=== PATIENT | male | born 1960 | race Caucasian/White ===

== ENCOUNTER 2018-03-31 08:11 | Day surgery (SDC) | payer MEDICAID, SELFPAY ==
[2018-03-31 08:42] VITALS: BP 142/68; PULSE 74; RESP 14; TEMP 36.8; O2SAT 97; BMI 26.5
--- NOTE | 2018-03-31 09:15 | COLBX_PTH ---
PATIENT: CHANO STOVER LOC: EN U#:[id number] AGE/SX: 58/M ROOM: RE03/31/[address]: Dr. Geovanna Zhang MD : 1960 BED: DIS: 03/31/2018 SPEC #: [id number] RECD: 03/31/18 11:33 STATUS: MARGIE BENIGNO #: [id number] GUERITA: 03/31/18 09:[address]: Geovanna Zhang DEPT: SURGICAL PATHOLOGY RECD BY: Sotero Valenzuela ENTERED: 03/31/18 12:48 SP TYPE: COLON BX OTHR DR: Joshua Gayle Tissues: A - Transverse colon B - Rectum, NOS Procedures: Surgery Specimen Level IV HEADER OPERATION: Colonoscopy (MAC) PRE-OP DIAGNOSIS: Positive fecal occult test TISSUE SUBMITTED: A. Distal transverse colon polyps, B. Rectal polyp MICROSCOPIC DIAGNOSIS A. Distal transverse colon polyp, biopsy: Fragments of tubular adenoma. B. Rectal polyp, biopsy: Fragments of hyperplastic polyp. Fecal debris. AM:jyoti 04/01/18 MICROSCOPIC DESCRIPTION Slides are reviewed. GROSS DESCRIPTION A. Received is one container labeled with the patient name and designated distal transverse colon polyp. The specimen consists of multiple irregular fragments of dangelo soft tissue that in aggregate measure 1.5 x 0.4 x 0.2 cm. The specimen is totally submitted in one cassette. B. Received is one container labeled with the patient name and designated rectal polyp. The specimen consists of multiple fragments of dangelo soft tissue that in aggregate measure 2.5 x 0.5 x 0.1 cm. The specimen is totally submitted in one cassette. / SJ:jyoti 03/31/18 TC: 5 CPT:41302 x2
[2018-03-31 10:05] VITALS: BP 131/83; BP 142/68; PULSE 78; RESP 16; TEMP 36.4; O2SAT 93
--- NOTE | 2018-03-31 10:09 | OP.ENDO_ITS ---
Patient Name: Tiago Miller Procedure Date: 03/31/2018 9:11 AM Date of : 1960 Age: 58 Procedure: Colonoscopy Indications: Positive fecal immunochemical test Providers: Geovanna Zhang MD Medicines: Monitored Anesthesia Care Patient Profile: This is a 58 year old male. Last Colonoscopy: none. The patient's first colonoscopy is today. Complications: No immediate complications. Procedure: Pre-Anesthesia Assessment: - Prior to the procedure, a History and Physical was performed, and patient medications and allergies were reviewed. The patient's tolerance of previous anesthesia was also reviewed. The risks and benefits of the procedure and the sedation options and risks were discussed with the patient. All questions were answered, and informed consent was obtained. Prior Anticoagulants: The patient has taken aspirin, last dose was 5 days prior to procedure. ASA Grade Assessment: II - A patient with mild systemic disease. After reviewing the risks and benefits, the patient was deemed in satisfactory condition to undergo the procedure. After I obtained informed consent, the scope was passed under direct vision. Throughout the procedure, the patient's blood pressure, pulse, and oxygen saturations were monitored continuously. The colonoscope was introduced through the anus and advanced to the cecum, identified by the appendiceal orifice, ileocecal valve and palpation. The colonoscopy was somewhat difficult due to a tortuous colon. The patient tolerated the procedure well. The quality of the bowel preparation was good. Scope In: 9:22:30 AM Scope Withdrawal Time 0 hours 20 minutes 49 seconds Scope Out: 10:00:37 AM Total Procedure Duration Time 0 hours 38 minutes 7 seconds Findings: The perianal and digital rectal examinations were normal. Three semi-pedunculated polyps were found in the rectum and distal transverse colon. The polyps were 4 to 7 mm in size. These polyps were removed with a hot snare. Resection and retrieval were complete. A less than 5 mm polyp was found in the distal transverse colon. The polyp was sessile. The polyp was removed with a cold biopsy forceps. Resection and retrieval were complete. The exam was otherwise without abnormality on direct and retroflexion views. Impression: - Three 4 to 7 mm polyps in the rectum and in the distal transverse colon, removed with a hot snare. Resected and retrieved. - One less than 5 mm polyp in the proximal transverse colon, removed with a cold biopsy forceps. Resected and retrieved. - The examination was otherwise normal on direct and retroflexion views. Recommendation: - Discharge patient to home. - High fiber diet. - Continue present medications. - Repeat colonoscopy in 3 - 5 years for surveillance based on pathology results. Procedure Code(s): --- Professional --- 57236, Colonoscopy, flexible; with removal of tumor(s), polyp(s), or other lesion(s) by snare technique 96793, 58, Colonoscopy, flexible; with biopsy, single or multiple Diagnosis Code(s): --- Professional --- K62.1, Rectal polyp D12.3, Benign neoplasm of transverse colon (hepatic flexure or splenic flexure) R19.5, Other fecal abnormalities CPT copyright 2017 [employer]. All rights reserved. The codes documented in this report are preliminary and upon health information coder review may be revised to meet current compliance requirements. MD Geovanna Raines MD 03/31/2018 10:09:17 AM This report has been signed electronically. Number of Addenda: 0 Note Initiated On: 03/31/2018 9:11 AM
[2018-03-31 10:10] VITALS: BP 134/84; BP 142/68; PULSE 80; RESP 16; O2SAT 94
[2018-03-31 10:15] VITALS: BP 124/80; BP 142/68; PULSE 76; RESP 16; O2SAT 94
[2018-03-31 10:20] VITALS: BP 134/84; BP 142/68; PULSE 69; RESP 16; TEMP 36.6; O2SAT 98
[2018-03-31 10:55] VITALS: BP 142/68
== END 2018-03-31 11:17 | disposition home or self-care (01) ==
LOC: EN 08:14 → AC 08:15
PROVIDERS: Family Provider Family Medicine; PCP Family Medicine; Referring Provider Surgery; Visit Provider Surgery
PROC: 0DJD8ZZ Inspection of Lower Intestinal Tract, Via Natural or Artificial Opening Endoscopic (ICD-10-PCS; CPT 45378; principal; 2018-03-31 09:10)
DX: D12.3 Benign neoplasm of transverse colon (principal); K62.1 Rectal polyp; R19.5 Other fecal abnormalities; F03.90 Unspecified dementia, unspecified severity, without behavioral disturbance, psychotic disturbance, mood disturbance, and anxiety; E11.9 Type 2 diabetes mellitus without complications
CPT/HCPCS: 45385; 88305; J7120

== ENCOUNTER 2023-05-13 06:58 | Day surgery (SDC) | payer MEDICARE, MEDICAID, SELFPAY ==
--- NOTE | 2023-05-13 07:18 | H&P.OPEN ---
[facility] - General General Date of Service: 05/13/23 HPI Narrative CHANO STOVER, is a 63 M who presents colonoscopy for surveillance due to history of colon polyps. Patient's last colonoscopy was 03/21/2018. Patient did have tubular adenomas at that time. No family history of colon cancer. Patient is a poor historian due to history of dementia and Parkinson's. Patient is accompanied by his aide from his nursing facility who denies any blood in his stool and patient also denies any abdominal pain nausea or vomiting. [facility], [facility] Medical History (Updated 05/13/23 @ 07:[address] Geovanna Zhang MD) Alcohol use Anxiety disorder Complete edentulism, class III Dementia Dietary restriction Epilepsy HTN (hypertension) Hx of colonic polyps Hypercholesterolemia with hypertriglyceridemia Injury of head and neck long-term resident Open wound Parkinsons Psychosis Schizophrenia Smoker Thyroid disease Type II diabetes mellitus Home Medications aspirin 81 mg tablet,delayed release 81 mg PO QDAY 12/24/17 [History Last Taken 03/26/18] atorvastatin 10 mg tablet (Lipitor) 80 mg PO QDAY 12/24/17 [History Last Taken Unknown] benztropine 0.5 mg tablet 1 mg PO QHS 12/24/17 [History Last Taken Unknown] cholecalciferol (vitamin D3) 50 mcg (2,000 unit) capsule 2,000 unit PO QDAY 12/24/17 [History Last Taken Unknown] cimetidine 400 mg tablet 400 mg PO BID 12/24/17 [History Last Taken Unknown] gabapentin 400 mg capsule 100 mg PO BID 12/24/17 [History Last Taken Unknown] haloperidol decanoate 100 mg/mL intramuscular solution (Haldol Decanoate) 50 mg IM Q14D 12/24/17 [History Last Taken Unknown] levothyroxine 100 mcg capsule 88 mcg PO QHS 12/24/17 [History Last Taken Unknown] lorazepam 2 mg tablet (Ativan) 2 mg PO TID 12/24/17 [History Last Taken Unknown] pimavanserin 17 mg tablet (Nuplazid) 34 mg PO DAILY 12/24/17 [History Last Taken Unknown] sertraline 50 mg tablet (Zoloft) 50 mg PO QDAY 12/24/17 [History Last Taken Unknown] trazodone 50 mg tablet 50 mg PO DAILY 12/24/17 [History Last Taken Unknown] multivitamin (Multiple Vitamins tablet) 1 ea PO DAILY 03/30/18 [History Last Taken Unknown] nutritional supplements (Resource 2.0 oral liquid) 237 ml PO BID 03/30/18 [History Last Taken Unknown] buspirone 5 mg tablet 10 mg PO TID 03/10/23 [History Last Taken Unknown] fenofibrate 160 mg tablet 160 mg PO DAILY 03/10/23 [History Last Taken Unknown] lisinopril 10 mg tablet 10 mg PO DAILY 03/10/23 [History Last Taken Unknown] metformin 500 mg tablet 500 mg PO BID 03/10/23 [History Last Taken Unknown] venlafaxine 150 mg capsule,extended release 24 hr (Effexor XR) 150 mg PO DAILY 03/10/23 [History Last Taken Unknown] gabapentin 100 mg capsule 200 mg PO QHS 05/07/23 [History Last Taken Unknown] Allergy/AdvReac Type Severity Reaction Status Date / Time dextromethorphan Allergy Mild Unknown Verified 05/07/23 12:29 guaifenesin [From Robitussin] Allergy Mild Unknown Verified 05/07/23 12:29 Penicillins Allergy Mild Unknown Verified 05/07/23 12:29 quinidine [From Nuedexta] Allergy Mild Unknown Verified 05/07/23 12:29 Surgical History (Updated 05/07/23 @ 12:48 by Demi Mills) Hx of colonoscopy Social History (Updated 03/10/23 @ 11:03 by Marian Pappas) housing: skilled nursing current occupational status: disabled Smoking Status: Light Smoker (<10/day) Past Medical/Surgical History Planned Operation Planned Operative Procedure/s: CSCOPE OA S.O.S: No Previous Hospitalizations/Surgeries HX Hospitalizations: No Any Problems With Anesthesia: No You/Your Family Experience Fever (Hyperthermia) With Anes: No Cholinesterase deficiency: No Cardiovascular Hx Chest Pain within Last 2 months: No Hx of Irregular Heartbeat and/or Afib: No Hx Heart Attack: No Hx Congestive Heart Failure: No Hx Rheumatic Fever: No Hx Hypertension: Yes (CONTROLLED WITH MED) Hx Internal Defibrillator: No Hx Pacemaker: No Hx Cardiac Catheterization: No Hx Cardiac Surgery/Stents/Etc.: No Hx Stress Test: No Hx Pain in Legs when Walking/Leg Cramps: No Respiratory Chronic Cough: No HX of Shortness of Breath: No Hoarseness: No Hx Chronic Obstructive Pulmonary Disease (COPD): No Hx Asthma: No Hx Emphysema: No Hx Sleep Apnea: No Hx Respiratory Tract Infection/Cold (presently): No Do You Snore Loudly (louder than talking or can be heard): No Do You Often Feel Tired/ Fatigued/ Sleepy Dring Daytime?: No Has Anyone Observed You Stop Breathing During Sleep?: No Result (for STOP score): Negative Hx Smoking: Yes Smoking Status: Light Smoker (<10/day) Gastrointestinal Hx Gastrointestinal Disorders: No Hx Gastrointestinal Bleed: No Hx Ulcer: No Hx Hiatal Hernia: No Difficulty Chewing/Swallowing: Yes Special diet followed at home: Yes (mech. soft,thin liquids) Hx Unplanned Weight Loss of 20#: No HX Unplanned Weight Gain of 20#: No Neurological Hx Seizures: Yes (epilepsy) HX Syncope/Blackout Spells/Unconsciousness: No Hx Transient Ischemic Attacks (TIA): No Hx Multiple Sclerosis: No Hx Parkinson's Disease: Yes Hx Head/Neck Injury: Yes (intracranial injury per hx) Hx Headaches: No Hx Back Injury/Pain: No Recent Onset of Speech Difficulty: No Restless Legs: No Does patient have nerve stimulator: No Blood Disorder Hx Leukemia: No Bleeding Tendencies: No Hx High Cholesterol: Yes (on med) Blood Transmitted Disease: No Hx Hepatitis: No Hx Cirrhosis: No Hx Anemia: No Hx Blood Disorders: No Genitourinary Hx Renal Disease: No Musculoskeletal Hx Arthritis: No Hx Rheumatoid Arthritis: No Hx Gout: No Recent Onset of an Orthopedic Problem: No Endocrine Hx Diabetes: No Thyroid Disease: Yes (on med) Hx Steroid Therapy: No Psycho/Social Hx Substance Use: No Hx Alcohol Use: No Hx Anxiety: No Hx Depression: Yes Mental Illness: Yes Hx Dementia: Yes Miscellaneous Hx Cancer: No Recent Exposure to Contagious Disease: No Hx of C-Diff: No Any Loose Teeth: No Allergies dextromethorphan Allergy (Mild, Verified 05/07/23 12:29) Unknown guaifenesin [From Robitussin] Allergy (Mild, Verified 05/07/23 12:29) Unknown Penicillins Allergy (Mild, Verified 05/07/23 12:29) Unknown quinidine [From Nuedexta] Allergy (Mild, Verified 05/07/23 12:29) Unknown Discharge Is Pt Admitted From a Retirement, or a Fpc: Yes After D/C, Where Do you Plan to Go: Return Home From the PAT History Number of Risk Factors: 4 Physical Exam Const alert and no apparent distress HEENT normocephalic and head/scalp atraumatic Resp normal respiratory effort Cardio regular rate GI soft to palpation and non-tender; Negative for non-distended Palpation: Negative for guarding Extremity no clubbing, cyanosis or edema Skin no rashes or lesions noted Neuro CN's II-XII intact bilaterally Psych mental status grossly normal Assessment & Plan Assessment/Plan (1) Hx of colonic polyps: Surgery Risks - Colonoscopy I discussed with the patient the risks of the procedure: Yes Risks Include but are not Limited To: Risks include but are not limited to: Bleeding, perforation requiring further surgery, inability to complete colonoscopy requiring barium enema.
[2023-05-13 07:28] VITALS: BP 109/76; PULSE 106; RESP 16; TEMP 36.1; O2SAT 95; BMI 24.4
[2023-05-13] MEDS: Lactated Ringers 1,000 ML 15 ML IV (07:41)
[2023-05-13 07:53] LABS: Bedside Glucose 173 mg/dL (74-106)
--- NOTE | 2023-05-13 08:15 | COLBX_PTH ---
PATHOLOGY RESULTS PATIENT: CHANO STOVER LOC: EN U#:[id number] AGE/SX: 63/M ROOM: RE05/13/[address]: Dr. Geovanna Zhang MD : 1960 BED: DIS: 05/13/2023 SPEC #: [id number] RECD: 05/14/23 07:29 STATUS: MARGIE BENIGNO #: [id number] GUERITA: 05/13/23 08:[address]: Geovanna Zhang DEPT: SURGICAL PATHOLOGY RECD BY: Kalyani Jackson ENTERED: 05/14/23 07:30 SP TYPE: COLON BX OTHR DR: Joshua Gayle Tissues: Descending colon Procedures: Surgery Specimen Level IV HEADER OPERATION: Colonoscopy - open access with biopsy PRE-OP DIAGNOSIS: History of colonic polyps TISSUE SUBMITTED: Descending colon biopsy MICROSCOPIC DIAGNOSIS Descending colon, biopsy: Tubular adenoma. CARLTON:dione 05/15/2023 MICROSCOPIC DESCRIPTION Slides are reviewed. GROSS DESCRIPTION Received in fixative is one container labeled with the patient's name and designated descending colon. The specimen consists of two irregular fragments of light dangelo soft tissue that in aggregate measure 0.5 x 0.5 x 0.1 cm. The specimen is totally submitted in one cassette. / SJ:dione 05/14/2023 TC:1 CPT: 07025
[2023-05-13 08:41] VITALS: BP 101/64; BP 109/76; PULSE 88; RESP 16; TEMP 36.5; O2SAT 96
--- NOTE | 2023-05-13 08:43 | OP.COLON_ITS ---
Patient Name: Tiago Miller Procedure Date: 05/13/2023 8:01 AM Date of : 1960 Age: 63 Procedure: Colonoscopy Indications: High risk colon cancer surveillance: Personal history of colonic polyps Providers: Geovanna Zhang MD Referring MD: Geovanna Zhang MD Medicines: Monitored Anesthesia Care Patient Profile: Last Colonoscopy: March 2018. Complications: No immediate complications. Procedure: Pre-Anesthesia Assessment: - Prior to the procedure, a History and Physical was performed, and patient medications and allergies were reviewed. The patient's tolerance of previous anesthesia was also reviewed. The risks and benefits of the procedure and the sedation options and risks were discussed with the patient. All questions were answered, and informed consent was obtained. Prior Anticoagulants: The patient has taken no anticoagulant or antiplatelet agents except for aspirin. ASA Grade Assessment: Per anesthesia. After reviewing the risks and benefits, the patient was deemed in satisfactory condition to undergo the procedure. After I obtained informed consent, the scope was passed under direct vision. Throughout the procedure, the patient's blood pressure, pulse, and oxygen saturations were monitored continuously. The Colonoscope was introduced through the anus and advanced to the cecum, identified by appendiceal orifice and ileocecal valve. The colonoscopy was performed without difficulty. The patient tolerated the procedure well. The quality of the bowel preparation was good. Scope In: 8:14:59 AM Scope Withdrawal Time 0 hours 8 minutes 22 seconds Scope Out: 8:36:03 AM Total Procedure Duration Time 0 hours 21 minutes 4 seconds Findings: The perianal and digital rectal examinations were normal. A less than 5 mm polyp was found in the descending colon. The polyp was sessile. The polyp was removed with a cold biopsy forceps. Resection and retrieval were complete. The exam was otherwise without abnormality on direct and retroflexion views. A single small-mouthed diverticulum was found in the transverse colon. Impression: - One less than 5 mm polyp in the descending colon, removed with a cold biopsy forceps. Resected and retrieved. - The examination was otherwise normal on direct and retroflexion views. - Diverticulosis in the transverse colon. Recommendation: - Discharge patient to a halfway. - Resume previous diet. - Continue present medications. - Resume aspirin at prior dose in 2 days. - Await pathology results. - Repeat colonoscopy in 5 years for surveillance based on pathology results. Procedure Code(s): --- Professional --- 08803, PT, Colonoscopy, flexible; with biopsy, single or multiple Diagnosis Code(s): --- Professional --- Z86.010, Personal history of colonic polyps D12.4, Benign neoplasm of descending colon K57.30, Diverticulosis of large intestine without perforation or abscess without bleeding CPT copyright 2021 [employer]. All rights reserved. The codes documented in this report are preliminary and upon community development worker review may be revised to meet current compliance requirements. MD Geovanna Raines MD 05/13/2023 8:43:20 AM This report has been signed electronically. Number of Addenda: 0 Note Initiated On: 05/13/2023 8:01 AM
--- NOTE | 2023-05-13 08:44 | OP.CCLET_ITS ---
05/13/2023 Joshua Gayle Re : Colonoscopy procedure for Tiago Roperr Nalini This procedure was performed on Saturday, May 13, 2023. My impressions and recommendations are as follows: Impressions : - One less than 5 mm polyp in the descending colon, removed with a cold biopsy forceps. Resected and retrieved. - The examination was otherwise normal on direct and retroflexion views. - Diverticulosis in the transverse colon. Recommendations : - Discharge patient to a snf. - Resume previous diet. - Continue present medications. - Resume aspirin at prior dose in 2 days. - Await pathology results. - Repeat colonoscopy in 5 years for surveillance based on pathology results. My findings are described in the full procedure note, which is enclosed. If I can be of further assistance, please feel free to contact me at Doctor phone number(s): , Work: . Sincerely, MD Geovanna Raines MD 05/13/2023 8:43:20 AM This report has been signed electronically.
[2023-05-13 08:45] VITALS: BP 101/70; BP 109/76; PULSE 87; RESP 16; O2SAT 96
[2023-05-13 08:50] VITALS: BP 109/76; BP 89/65; PULSE 85; RESP 16; O2SAT 95
[2023-05-13 08:55] VITALS: BP 109/76; BP 111/62; PULSE 89; RESP 16; TEMP 36.1; O2SAT 95
[2023-05-13 09:09] VITALS: BP 109/76
== END 2023-05-13 09:15 | disposition home or self-care (01) ==
LOC: EN 07:02 → AC 07:04
PROVIDERS: PCP Family Medicine; Referring Provider Surgery; Visit Provider Surgery
PROC: 0DJD8ZZ Inspection of Lower Intestinal Tract, Via Natural or Artificial Opening Endoscopic (ICD-10-PCS; CPT 45378; principal; 2023-05-13 08:10)
DX: Z12.11 Encounter for screening for malignant neoplasm of colon (principal); F02.80 Dementia in other diseases classified elsewhere, unspecified severity, without behavioral disturbance, psychotic disturbance, mood disturbance, and anxiety; G40.909 Epilepsy, unspecified, not intractable, without status epilepticus; E11.9 Type 2 diabetes mellitus without complications; I10 Essential (primary) hypertension; G20.C Parkinsonism, unspecified; Z86.010 Personal history of colon polyps; E07.9 Disorder of thyroid, unspecified; K57.30 Diverticulosis of large intestine without perforation or abscess without bleeding; Z79.82 Long term (current) use of aspirin; E78.00 Pure hypercholesterolemia, unspecified; F17.200 Nicotine dependence, unspecified, uncomplicated; D12.4 Benign neoplasm of descending colon
CPT/HCPCS: 45380; 82962; 88305; J7120; J2405